=== PATIENT | female | born 1985 | race Caucasian/White ===

== ENCOUNTER 2020-07-19 02:48 | Emergency (ER) | payer OTHER ==
[~2020-07-19] VITALS: Ht 157.5 cm; Wt 74.5 kg
[2020-07-19 03:17] VITALS: Ht 157.5 cm; Wt 74.5 kg
[2020-07-19 06:54] LABS: CARBON DIOXIDE 29.6 mmol/L (21-32); CHLORIDE SERUM 105 mmol/L (98-107); CREATININE SERUM 0.7 mg/dL (0.6-1.0); GFR1 > 60 mL/min; GLUCOSE SERUM 87 mg/dL (74-106); POTASSIUM SERUM 3.8 mmol/L (3.5-5.1); SODIUM SERUM 141 mmol/L (136-145)
[2020-07-19 06:59] LABS: BASOPHIL % 0.3 % (0-2); PLATELET COUNT 274 x10^3mcL (130-400); RED CELL DISTRIBUTION WIDTH 13.1 % (11.5-14.5)
[2020-07-19 07:01] LABS: ALBUMIN 3.8 g/dL (3.4-5.0); ALKALINE PHOSPHATASE 77 U/L (46-116); ALT/SGPT 108 U/L (14-59); AST/SGOT 53 U/L (15-37); BILIRUBIN TOTAL 0.4 mg/dL (0.20-1.00); TOTAL PROTEIN, SERUM 8.1 g/dL (6.4-8.2)
[2020-07-19 10:20] VITALS: BP 136/84
[2020-07-19 11:23] LABS: microscopic required? YES; urine erythrocyte TRACE (NEGATIVE)
== END 2020-07-19 10:15 | disposition home or self-care (01) ==
LOC: ED 02:48
PROVIDERS: Emergency Medicine
DX: G45.9 Transient cerebral ischemic attack, unspecified (principal)
CPT/HCPCS: Q0092; Q9967